=== PATIENT | female | born 1950 | race Hispanic/Latino ===

== ENCOUNTER 2018-04-28 23:36 | Emergency (ER) | payer MEDICARE ==
[2018-04-29] MEDS ORDERED: ONDANSETRON HCL 4 MG/2 ML VIAL ONE (00:14)
[2018-04-29] MEDS ORDERED: MORPHINE SULFATE 2 MG/ML 1ML SYG ONE (00:14)
[2018-04-29 00:17] LABS: APPEARANCE,URINE Clear (CLEAR); BASOPHILS % (AUTO) 0.3 % (0.0-5.0); BILIRUBIN,URINE Negative (NEGATIVE); COLOR,URINE Yellow (YELLOW); EOSINOPHILS % (AUTO) 0.8 % (0.0-8.0); GLUCOSE, URINE (UA) Negative (NEGATIVE); HEMATOCRIT 36.3 % (36-48); KETONES,URINE Negative (NEGATIVE); LEUKOCYTE ESTERASE ,URINE Moderate (NEGATIVE); LYMPHOCYTES % (AUTO) 13.2 % (21.0-51.0); MEAN CORPUSCULAR HEMOGLOBIN 28.1 pg (27.0-33.0); MEAN CORPUSCULAR HGB CONC 32.8 g/dL (32.0-36.0); MEAN CORPUSCULAR VOLUME 85.6 fL (79-99); MONOCYTES % (AUTO) 8.4 % (3.0-13.0); NEUTROPHILS % (AUTO) 77.3 % (40.0-77.0); NITRATE,URINE Negative (NEGATIVE); OCCULT BLOOD,URINE Moderate (NEGATIVE); PLATELET COUNT (AUTO) 295 K/uL (130-400); PROTEIN,URINE Negative (NEGATIVE); RED BLOOD CELL COUNT(AUTO) 4.24 MIL/uL (4.00-5.50); UROBILINOGEN,URINE 0.2 mg/dL (0.2-1.0); WHITE BLOOD COUNT (AUTO) 10.6 K/uL (4.8-10.8)
[2018-04-29 00:25] LABS: BACTERIA,URINE Few /HPF (None Seen); RBC,URINE 0-1 /HPF (0-1)
[2018-04-29 00:33] LABS: ALBUMIN 3.8 g/dL (3.5-5.0); BILIRUBIN,TOTAL 0.5 mg/dL (0.2-1.0); CREATININE 1.1 mg/dL (0.5-1.5); TOTAL PROTEIN, SERUM 8.2 g/dL (6.0-8.3)
[2018-04-29 01:10] LABS: POTASSIUM 4.1 mmol/L (3.5-5.1)
[2018-04-29] MEDS ORDERED: IOPAMIDOL-370 75 ML VIAL IV ONE (01:25)
== END 2018-04-29 04:02 | disposition home or self-care (01) ==
LOC: EDH 23:36
DX: N39.0 Urinary tract infection, site not specified (principal); R10.9 Unspecified abdominal pain; N13.30 Unspecified hydronephrosis; I10 Essential (primary) hypertension; Z90.710 Acquired absence of both cervix and uterus
CPT/HCPCS: 36415; 74177; 80053; 81001; 83690; 85025; 87088; 96374; 96375; 99285; J2405; Q9967

== ENCOUNTER 2018-05-02 03:54 | Inpatient (IN) | payer MEDICARE ==
[~2018-05-02] VITALS: Ht 160 cm; Wt 79.1 kg
[2018-05-02 04:32] LABS: APPEARANCE,URINE Clear (CLEAR); BILIRUBIN,URINE Negative (NEGATIVE); COLOR,URINE Yellow (YELLOW); GLUCOSE, URINE (UA) Negative (NEGATIVE); KETONES,URINE Negative (NEGATIVE); LEUKOCYTE ESTERASE ,URINE Negative (NEGATIVE); NITRATE,URINE Negative (NEGATIVE); OCCULT BLOOD,URINE Negative (NEGATIVE); PH,URINE 6.5 (5.0-8.0); PROTEIN,URINE Negative (NEGATIVE); UROBILINOGEN,URINE 0.2 mg/dL (0.2-1.0)
[2018-05-02] MEDS ORDERED: MEPERIDINE-PF 25 MG/ML SYG ONE ×2 (04:45→06:12)
[2018-05-02] MEDS ORDERED: ONDANSETRON HCL 4 MG/2 ML VIAL ONE ×3 (04:46→12:07)
[2018-05-02 05:02] LABS: BASOPHILS % (AUTO) 0.4 % (0.0-5.0); EOSINOPHILS % (AUTO) 0.2 % (0.0-8.0); HEMATOCRIT 33.4 % (36-48); LYMPHOCYTES % (AUTO) 11.1 % (21.0-51.0); MEAN CORPUSCULAR HEMOGLOBIN 28.7 pg (27.0-33.0); MEAN CORPUSCULAR HGB CONC 33.5 g/dL (32.0-36.0); MEAN CORPUSCULAR VOLUME 85.6 fL (79-99); MONOCYTES % (AUTO) 6.3 % (3.0-13.0); PLATELET COUNT (AUTO) 300 K/uL (130-400); RED CELL DISTRIBUTION WIDTH 17.2 % (11.0-15.5); WHITE BLOOD COUNT (AUTO) 9.1 K/uL (4.8-10.8)
[2018-05-02 05:11] LABS: POTASSIUM 3.8 mmol/L (3.5-5.1)
[2018-05-02 05:17] LABS: ALBUMIN 3.6 g/dL (3.5-5.0); BILIRUBIN,TOTAL 0.4 mg/dL (0.2-1.0); TOTAL PROTEIN, SERUM 8.1 g/dL (6.0-8.3)
[2018-05-02] MEDS ORDERED: ACETAMINOPHEN 325 MG TAB ONE (05:39)
[2018-05-02] MEDS ORDERED: SODIUM CHLORIDE 0.9% 50 ML IV ONE (06:12)
[2018-05-02] MEDS ORDERED: MORPHINE SULFATE 2 MG/ML 1ML SYG ONE (08:51)
[2018-05-02] MEDS ORDERED: MORPHINE SULFATE 4 MG/1ML SYG ONE ×3 (12:10→22:51)
[2018-05-02 15:19] VITALS: BP 166/97
[2018-05-02] MEDS ORDERED: MIRALAX PO (16:32)
[2018-05-02] MEDS ORDERED: CEPH500C2 PO (16:32)
[2018-05-02] MEDS ORDERED: ACET1TAB25 PO (16:32)
[2018-05-02] MEDS ORDERED: OLME20TA22 PO (16:32)
[2018-05-02] MEDS ORDERED: SIMV20TA6 PO (16:32)
[2018-05-02] MEDS ORDERED: AEC81 PO (16:32)
[2018-05-02] MEDS: MORPHINE SULFATE 2 MG/ML 1ML SYG IVP PRN (16:39)
[2018-05-02] MEDS: ONDANSETRON HCL 4 MG/2 ML VIAL IVP PRN (16:40)
[2018-05-02 19:22] VITALS: BP 177/81
[2018-05-02] MEDS ORDERED: POLYETHYLENE GLYCOL 3350 17 GM POWD.PACK PO PRN (20:30)
[2018-05-02] MEDS ORDERED: IOPAMIDOL-370 75 ML VIAL IV ONE (20:30)
[2018-05-02] MEDS: FAMOTIDINE 20MG TAB 20 MG TAB PO SCH (21:19)
[2018-05-02] MEDS: SODIUM CHLORIDE 0.9% 1000ML 1,000 ML IV SCH (21:19)
[2018-05-02] MEDS: ATORVASTATIN CALCIUM 10 MG TABLET PO SCH (21:19)
[2018-05-03] VITALS (7 sets, daily range): BP systolic 126–153; BP diastolic 72–90
[2018-05-03 04:51] LABS: HEMATOCRIT 33.7 % (36-48); MEAN CORPUSCULAR HEMOGLOBIN 28.8 pg (27.0-33.0); MEAN CORPUSCULAR HGB CONC 33.5 g/dL (32.0-36.0); MEAN CORPUSCULAR VOLUME 85.8 fL (79-99); PLATELET COUNT (AUTO) 287 K/uL (130-400); RED BLOOD CELL COUNT(AUTO) 3.93 MIL/uL (4.00-5.50); RED CELL DISTRIBUTION WIDTH 17.5 % (11.0-15.5); WHITE BLOOD COUNT (AUTO) 9.4 K/uL (4.8-10.8)
[2018-05-03] MEDS ORDERED: MORPHINE SULFATE 4 MG/1ML SYG ONE ×4 (04:52→21:39)
[2018-05-03 05:03] LABS: CREATININE 1.2 mg/dL (0.5-1.5)
[2018-05-03] MEDS: FAMOTIDINE 20MG TAB 20 MG TAB PO SCH ×2 (09:14→22:02)
[2018-05-03] MEDS: ASPIRIN 81 MG EC TAB PO SCH (09:14)
[2018-05-03] MEDS: LOSARTAN 100 MG TABLET PO SCH (09:14)
[2018-05-03] MEDS: ENOXAPARIN SODIUM 40 MG/0.4 ML SYRINGE SQ SCH (09:14)
[2018-05-03] MEDS: SODIUM CHLORIDE 0.9% 1000ML 1,000 ML IV SCH ×2 (09:17→22:05)
[2018-05-03] MEDS: ONDANSETRON HCL 4 MG/2 ML VIAL IVP PRN ×3 (11:33→21:53)
[2018-05-03] MEDS: LACTULOSE 20 GM/30 ML UDCUP PO SCH (11:33)
[2018-05-03] MEDS: MORPHINE SULFATE 2 MG/ML 1ML SYG IVP PRN ×2 (11:34→17:02)
[2018-05-03] MEDS ORDERED: MAGNESIUM CITRATE 296 ML SOLUTION PO ONE (17:00)
[2018-05-03] MEDS: ATORVASTATIN CALCIUM 10 MG TABLET PO SCH (22:02)
[2018-05-04] VITALS (22 sets, daily range): BP systolic 77–169; BP diastolic 44–90
[2018-05-04] MEDS ORDERED: MORPHINE SULFATE 4 MG/1ML SYG ONE ×2 (04:50→10:23)
[2018-05-04 05:44] LABS: HEMATOCRIT 33.3 % (36-48); MEAN CORPUSCULAR HEMOGLOBIN 28.6 pg (27.0-33.0); MEAN CORPUSCULAR HGB CONC 33.4 g/dL (32.0-36.0); MEAN CORPUSCULAR VOLUME 85.5 fL (79-99); PLATELET COUNT (AUTO) 308 K/uL (130-400); RED CELL DISTRIBUTION WIDTH 17.1 % (11.0-15.5); WHITE BLOOD COUNT (AUTO) 10.6 K/uL (4.8-10.8)
[2018-05-04 05:51] LABS: CREATININE 1.1 mg/dL (0.5-1.5); POTASSIUM 4.2 mmol/L (3.5-5.1)
[2018-05-04 06:55] LABS: PARTIAL THROMBOPLASTIN TIME 29.3 SEC (26.3-35.5); PROTHROMBIN TIME 10.5 SEC (9.6-11.6)
[2018-05-04] MEDS: LOSARTAN 100 MG TABLET PO SCH (07:32)
[2018-05-04] MEDS: ASPIRIN 81 MG EC TAB PO SCH (07:32)
[2018-05-04] MEDS: FAMOTIDINE 20MG TAB 20 MG TAB PO SCH ×2 (07:33→22:12)
[2018-05-04] MEDS: ENOXAPARIN SODIUM 40 MG/0.4 ML SYRINGE SQ SCH (07:33)
[2018-05-04] MEDS: LACTULOSE 20 GM/30 ML UDCUP PO SCH (07:33)
[2018-05-04] MEDS: SODIUM CHLORIDE 0.9% 1000ML 1,000 ML IV SCH (12:25)
[2018-05-04] MEDS ORDERED: LACTATED RINGERS 1000ML 1,000 ML IV ONE (13:15)
[2018-05-04] MEDS ORDERED: CEFAZOLIN SODIUM 1 GM VIAL ONE (13:15)
[2018-05-04] MEDS ORDERED: GLYCOPYRROLATE 0.2 MG/ML 5 ML VIAL ONE (13:37)
[2018-05-04] MEDS ORDERED: DEXAMETHASONE SOD PHOSPHATE 10MG/ML 1ML VIAL ONE (13:37)
[2018-05-04] MEDS ORDERED: LIDOCAINE PF 2% 5ML ABBOJECT ONE (13:37)
[2018-05-04] MEDS ORDERED: ONDANSETRON HCL 4 MG/2 ML VIAL ONE (13:37)
[2018-05-04] MEDS ORDERED: PROPOFOL 10 MG/ML 20ML VIAL IV ONE ×2 (13:39→14:18)
[2018-05-04] MEDS ORDERED: MIDAZOLAM HCL 1 MG/ML 2ML VIAL ONE (13:39)
[2018-05-04] MEDS ORDERED: ISOVUE-370 50ML VIAL IV ONE (13:45)
[2018-05-04] MEDS ORDERED: LIDOCAINE HCL MPF 1% 5ML VIAL ONE (15:36)
[2018-05-04] MEDS ORDERED: CEFAZOLIN SODIUM 1 GM VIAL IV PRN (16:00)
[2018-05-04] MEDS: ATORVASTATIN CALCIUM 10 MG TABLET PO SCH (22:12)
[2018-05-05 03:00] VITALS: BP 129/52
[2018-05-05 05:18] LABS: HEMATOCRIT 31.9 % (36-48); MEAN CORPUSCULAR HEMOGLOBIN 28.5 pg (27.0-33.0); MEAN CORPUSCULAR VOLUME 86.2 fL (79-99); PLATELET COUNT (AUTO) 298 K/uL (130-400); RED CELL DISTRIBUTION WIDTH 16.9 % (11.0-15.5); WHITE BLOOD COUNT (AUTO) 7.8 K/uL (4.8-10.8)
[2018-05-05 05:40] LABS: ALBUMIN 2.7 g/dL (3.5-5.0); BILIRUBIN,TOTAL 0.3 mg/dL (0.2-1.0); TOTAL PROTEIN, SERUM 6.9 g/dL (6.0-8.3)
[2018-05-05] MEDS: SODIUM CHLORIDE 0.9% 1000ML 1,000 ML IV SCH ×2 (06:27→20:40)
[2018-05-05 08:00] VITALS: BP 136/54
[2018-05-05] MEDS: ASPIRIN 81 MG EC TAB PO SCH (09:03)
[2018-05-05] MEDS: FAMOTIDINE 20MG TAB 20 MG TAB PO SCH ×2 (09:03→20:37)
[2018-05-05] MEDS: ENOXAPARIN SODIUM 40 MG/0.4 ML SYRINGE SQ SCH (09:04)
[2018-05-05] MEDS: LOSARTAN 100 MG TABLET PO SCH (09:04)
[2018-05-05] MEDS: LACTULOSE 20 GM/30 ML UDCUP PO SCH (09:06)
[2018-05-05 12:00] VITALS: BP 118/86
[2018-05-05 16:00] VITALS: BP 117/69
[2018-05-05 19:00] VITALS: BP 127/64
[2018-05-05] MEDS: ATORVASTATIN CALCIUM 10 MG TABLET PO SCH (20:37)
[2018-05-05 23:00] VITALS: BP 135/57
[2018-05-06 03:00] VITALS: BP 150/76
[2018-05-06] MEDS: SODIUM CHLORIDE 0.9% 1000ML 1,000 ML IV SCH (04:00)
[2018-05-06 05:03] LABS: BASOPHILS % (AUTO) 0.3 % (0.0-5.0); EOSINOPHILS % (AUTO) 3.5 % (0.0-8.0); LYMPHOCYTES % (AUTO) 28.7 % (21.0-51.0); MEAN CORPUSCULAR HEMOGLOBIN 28.6 pg (27.0-33.0); MEAN CORPUSCULAR HGB CONC 33.1 g/dL (32.0-36.0); MEAN CORPUSCULAR VOLUME 86.2 fL (79-99); MONOCYTES % (AUTO) 9.9 % (3.0-13.0); NEUTROPHILS % (AUTO) 57.6 % (40.0-77.0); PLATELET COUNT (AUTO) 298 K/uL (130-400); RED BLOOD CELL COUNT(AUTO) 3.59 MIL/uL (4.00-5.50); RED CELL DISTRIBUTION WIDTH 16.8 % (11.0-15.5); WHITE BLOOD COUNT (AUTO) 7.2 K/uL (4.8-10.8)
[2018-05-06 05:21] LABS: POTASSIUM 3.9 mmol/L (3.5-5.1)
[2018-05-06 08:00] VITALS: BP 135/79
[2018-05-06] MEDS: ASPIRIN 81 MG EC TAB PO SCH (08:01)
[2018-05-06] MEDS: FAMOTIDINE 20MG TAB 20 MG TAB PO SCH ×2 (08:02→21:32)
[2018-05-06] MEDS: LOSARTAN 100 MG TABLET PO SCH (08:02)
[2018-05-06] MEDS: ENOXAPARIN SODIUM 40 MG/0.4 ML SYRINGE SQ SCH (08:03)
[2018-05-06] MEDS: LACTULOSE 20 GM/30 ML UDCUP PO SCH (11:15)
[2018-05-06 12:00] VITALS: BP 122/75
[2018-05-06 16:00] VITALS: BP 152/78
[2018-05-06 19:00] VITALS: BP 145/78
[2018-05-06] MEDS: ATORVASTATIN CALCIUM 10 MG TABLET PO SCH (21:32)
[2018-05-06 23:00] VITALS: BP 142/84
[2018-05-07 03:00] VITALS: BP 132/70
[2018-05-07 08:00] VITALS: BP 147/78
[2018-05-07] MEDS: ENOXAPARIN SODIUM 40 MG/0.4 ML SYRINGE SQ SCH (09:00)
[2018-05-07] MEDS: FAMOTIDINE 20MG TAB 20 MG TAB PO SCH ×2 (09:44→21:35)
[2018-05-07] MEDS: LOSARTAN 100 MG TABLET PO SCH (09:44)
[2018-05-07] MEDS: ASPIRIN 81 MG EC TAB PO SCH (09:44)
[2018-05-07 10:29] LABS: BASOPHILS % (AUTO) 0.2 % (0.0-5.0); EOSINOPHILS % (AUTO) 3.2 % (0.0-8.0); HEMATOCRIT 34.1 % (36-48); LYMPHOCYTES % (AUTO) 27.2 % (21.0-51.0); MEAN CORPUSCULAR HEMOGLOBIN 28.1 pg (27.0-33.0); MEAN CORPUSCULAR HGB CONC 32.6 g/dL (32.0-36.0); MEAN CORPUSCULAR VOLUME 86.4 fL (79-99); NEUTROPHILS % (AUTO) 59.4 % (40.0-77.0); PLATELET COUNT (AUTO) 323 K/uL (130-400); RED BLOOD CELL COUNT(AUTO) 3.95 MIL/uL (4.00-5.50); RED CELL DISTRIBUTION WIDTH 16.9 % (11.0-15.5); WHITE BLOOD COUNT (AUTO) 7.5 K/uL (4.8-10.8)
[2018-05-07 10:51] LABS: POTASSIUM 4.2 mmol/L (3.5-5.1)
[2018-05-07 11:00] VITALS: BP 142/88
[2018-05-07] MEDS: LACTULOSE 20 GM/30 ML UDCUP PO SCH (11:15)
[2018-05-07] MEDS ORDERED: FAMO20TA8 PO (14:38)
[2018-05-07 16:00] VITALS: BP 146/75
[2018-05-07 20:00] VITALS: BP 148/70
[2018-05-07] MEDS: ATORVASTATIN CALCIUM 10 MG TABLET PO SCH (21:35)
[2018-05-08] VITALS: BP 146/64
[2018-05-08 04:00] VITALS: BP 100/70
== END 2018-05-08 08:51 | disposition home or self-care (01) | DRG 694 ==
LOC: EDH 03:54 → EDHIP 07:26 → 3BH 15:17
PROVIDERS: ADMIT Family Medicine; ATTEND Family Medicine
PROC: BT1F1ZZ Fluoroscopy of Left Kidney, Ureter and Bladder using Low Osmolar Contrast (ICD-10-PCS; 2018-05-04)
PROC: 0T778DZ Dilation of Left Ureter with Intraluminal Device, Via Natural or Artificial Opening Endoscopic (ICD-10-PCS; principal; 2018-05-04 13:35)
DX: N13.39 Other hydronephrosis (principal); R19.00 Intra-abdominal and pelvic swelling, mass and lump, unspecified site; R59.0 Localized enlarged lymph nodes; K52.9 Noninfective gastroenteritis and colitis, unspecified; I10 Essential (primary) hypertension; E78.5 Hyperlipidemia, unspecified; L72.9 Follicular cyst of the skin and subcutaneous tissue, unspecified; N28.1 Cyst of kidney, acquired; N99.3 Prolapse of vaginal vault after hysterectomy; N39.0 Urinary tract infection, site not specified; Z85.42 Personal history of malignant neoplasm of other parts of uterus; Z92.21 Personal history of antineoplastic chemotherapy; Z90.710 Acquired absence of both cervix and uterus; Z83.3 Family history of diabetes mellitus; Z82.49 Family history of ischemic heart disease and other diseases of the circulatory system
CPT/HCPCS: 36415; 49180; 74018; 74170; 74176; 74177; 74420; 77012; 80048; 80053; 81001; 81003; 83690; 85025; 85027; 85610; 85730; 87088; 88305; A4218; A4344; C1758; C2617; J0690; J1100; J1650; J2001; J2175; J2250; J2270; J2405; J2704; J3490; J7030; J7120; Q9967

== ENCOUNTER → 2018-10-15 | Outpatient (CLI) | payer MEDICARE ==
[~2018-10-15] VITALS: Ht 160 cm; Wt 79.7 kg
[~2018-10-15] MED LIST: AEC81 PO; AMOXICILLIN PO; CEFAZOLIN SODIUM 1 GM VIAL IVP SCH; DEXA4TAB PO; LACTATED RINGERS 1000ML 1,000 ML IV SCH; OLAN2.5T29 PO; OLME20TA22 PO; PANT40TA25 PO; SIMV20TA6 PO; ZOSYN 3.375GM+NS 50ML 50 ML IV SCH
[2018-10-15 16:55] VITALS: BP 145/68
[2018-10-15 17:07] LABS: HEMATOCRIT 34.4 % (36-48); MEAN CORPUSCULAR HGB CONC 31.9 g/dL (32.0-36.0); NUCLEATED RED BLOOD CELLS 0.1 % (0.0-0.19); PLATELET COUNT (AUTO) 153 K/uL (130-400); RED BLOOD CELL COUNT(AUTO) 3.79 MIL/uL (4.00-5.50); RED CELL DISTRIBUTION WIDTH 17.6 % (11.0-15.5); WHITE BLOOD COUNT (AUTO) 7.4 K/uL (4.8-10.8)
[2018-10-15 17:10] LABS: CREATININE 0.9 mg/dL (0.5-1.5); POTASSIUM 4.1 mmol/L (3.5-5.1)
[2018-10-15 17:11] LABS: APPEARANCE,URINE Clear (CLEAR); BILIRUBIN,URINE Negative (NEGATIVE); COLOR,URINE Yellow (YELLOW); GLUCOSE, URINE (UA) Negative (NEGATIVE); INR 0.97 (0.85-1.15); KETONES,URINE Negative (NEGATIVE); LEUKOCYTE ESTERASE ,URINE Moderate (NEGATIVE); NITRATE,URINE Negative (NEGATIVE); OCCULT BLOOD,URINE Large (NEGATIVE); PARTIAL THROMBOPLASTIN TIME 25.4 SEC (26.3-35.5); PH,URINE 5.5 (5.0-8.0); PROTEIN,URINE Negative (NEGATIVE); PROTHROMBIN TIME 10.2 SEC (9.6-11.6)
[2018-10-15 17:25] LABS: BACTERIA,URINE Rare /HPF (None Seen)
[2018-10-15 17:26] LABS: YEAST,URINE BUDDING Few /HPF (None Seen)
== END ==
LOC: DAH 10:00 → EDSTATUS 10-23 07:00
PROVIDERS: ATTEND Urology
DX: N13.30 Unspecified hydronephrosis (principal); Z53.9 Procedure and treatment not carried out, unspecified reason
CPT/HCPCS: 36415; 71046; 80048; 81001; 85027; 85610; 85730; 87077; 87088; 87186; 93005

== ENCOUNTER 2018-11-06 05:53 | Day surgery (SDC) | payer MEDICARE ==
[2018-11-05 11:35] VITALS: BP 138/62
[2018-11-05 11:50] LABS: HEMATOCRIT 34.1 % (36-48); MEAN CORPUSCULAR HEMOGLOBIN 29.3 pg (27.0-33.0); MEAN CORPUSCULAR HGB CONC 32.6 g/dL (32.0-36.0); NUCLEATED RED BLOOD CELLS 0.1 % (0.0-0.19); PLATELET COUNT (AUTO) 255 K/uL (130-400); RED BLOOD CELL COUNT(AUTO) 3.79 MIL/uL (4.00-5.50); RED CELL DISTRIBUTION WIDTH 16.9 % (11.0-15.5); WHITE BLOOD COUNT (AUTO) 3.8 K/uL (4.8-10.8)
[2018-11-05 11:50] LABS: APPEARANCE,URINE Clear (CLEAR); BILIRUBIN,URINE Negative (NEGATIVE); COLOR,URINE Yellow (YELLOW); GLUCOSE, URINE (UA) Negative (NEGATIVE); KETONES,URINE Negative (NEGATIVE); LEUKOCYTE ESTERASE ,URINE Small (NEGATIVE); NITRATE,URINE Negative (NEGATIVE); OCCULT BLOOD,URINE Large (NEGATIVE); PH,URINE 5.5 (5.0-8.0); PROTEIN,URINE Trace (NEGATIVE)
[2018-11-05 11:56] LABS: BACTERIA,URINE Rare /HPF (None Seen); RBC,URINE 26-50 /HPF (0-1); SQUAMOUS EPITHELIAL CELL,UR Rare /HPF (0-2)
[2018-11-05 12:00] LABS: CREATININE 0.8 mg/dL (0.5-1.5); POTASSIUM 4.3 mmol/L (3.5-5.1)
[2018-11-05 12:02] LABS: INR 0.97 (0.85-1.15); PARTIAL THROMBOPLASTIN TIME 25.9 SEC (26.3-35.5); PROTHROMBIN TIME 10.2 SEC (9.6-11.6)
[~2018-11-06] VITALS: Ht 158.8 cm; Wt 79.8 kg
[2018-11-06] VITALS (13 sets, daily range): BP systolic 108–162; BP diastolic 63–90
[2018-11-06] MEDS: CEFAZOLIN SODIUM 1 GM VIAL IVP SCH ×2 (05:00→07:00)
[~2018-11-06 05:53] MED LIST changes: -AMOXICILLIN PO; -CEFAZOLIN SODIUM 1 GM VIAL IVP SCH; -DEXA4TAB PO; +ERGO500014 PO; -LACTATED RINGERS 1000ML 1,000 ML IV SCH; -OLAN2.5T29 PO; -PANT40TA25 PO; +RIVA15TA PO; +VITAMIN B12 PO; -ZOSYN 3.375GM+NS 50ML 50 ML IV SCH
[2018-11-06] MEDS ORDERED: IOHEXOL-350 50ML VIAL IV ONE (06:24)
[2018-11-06] MEDS: LACTATED RINGERS 1000ML 1,000 ML IV SCH ×2 (06:41→06:55)
[2018-11-06] MEDS ORDERED: LIDOCAINE PF 2% 5ML ABBOJECT ONE (06:57)
[2018-11-06] MEDS ORDERED: DEXAMETHASONE SOD PHOSPHATE 10MG/ML 1ML VIAL ONE (06:57)
[2018-11-06] MEDS ORDERED: FENTANYL CITRATE PF 50 MCG/1 ML 2ML VIAL ONE (06:58)
[2018-11-06] MEDS ORDERED: NEOSTIGMINE 5MG/5ML SYR IV ONE (06:58)
[2018-11-06] MEDS ORDERED: ONDANSETRON HCL 4 MG/2 ML VIAL ONE (06:58)
[2018-11-06] MEDS ORDERED: MIDAZOLAM HCL 1 MG/ML 2ML VIAL ONE (06:58)
[2018-11-06] MEDS ORDERED: PROPOFOL 10 MG/ML 20ML VIAL IV ONE (06:58)
[2018-11-06] MEDS ORDERED: ROCURONIUM 10MG/1ML SYR 10 MG/ML ML ONE (06:58)
[2018-11-06] MEDS ORDERED: GLYCOPYRROLATE 1 MG/5 ML SYRINGE ONE (06:58)
[2018-11-06] MEDS ORDERED: SODIUM CHLORIDE 0.9% 10 ML VIAL ONE (07:15)
[2018-11-06] MEDS ORDERED: PHENYLEPHRINE HCL 10 MG/ML 1ML VIAL IV ONE (07:15)
== END 2018-11-06 09:10 | disposition home or self-care (01) ==
LOC: DAH 05:53 → EDSTATUS 07:00 → DAH 09:10
PROVIDERS: ATTEND Urology
DX: N13.30 Unspecified hydronephrosis (principal); C56.9 Malignant neoplasm of unspecified ovary; C79.82 Secondary malignant neoplasm of genital organs; I10 Essential (primary) hypertension
CPT/HCPCS: 36415; 52332; 74420; 80048; 81001; 85027; 85610; 85730; 87088; A4358; A4930; C1758; C1769; C2617; J0690; J1100; J2001; J2250; J2370; J2405; J2704; J2710; J3010; J3490; J7120 ×2; Q9967

== ENCOUNTER 2019-01-28 01:14 | Inpatient (IN) | payer MEDICARE ==
[~2019-01-28] VITALS: Ht 160 cm; Wt 69.2 kg
[~2019-01-28 01:14] MED LIST changes: +ONDA4TAB9 PO; -RIVA15TA PO; +TRAM50TA4 PO
[2019-01-28 02:13] LABS: APPEARANCE,URINE Clear (CLEAR); BILIRUBIN,URINE Negative (NEGATIVE); COLOR,URINE Yellow (YELLOW); GLUCOSE, URINE (UA) Negative (NEGATIVE); KETONES,URINE Negative (NEGATIVE); LEUKOCYTE ESTERASE ,URINE Small (NEGATIVE); NITRATE,URINE Negative (NEGATIVE); OCCULT BLOOD,URINE Moderate (NEGATIVE); PH,URINE 5.5 (5.0-8.0); PROTEIN,URINE Negative (NEGATIVE)
[2019-01-28 02:31] LABS: BACTERIA,URINE Few /HPF (None Seen)
[2019-01-28] MEDS ORDERED: MORPHINE SULFATE 2 MG/ML 1ML SYG ONE (02:48)
[2019-01-28] MEDS ORDERED: ONDANSETRON HCL 4 MG/2 ML VIAL ONE (02:48)
[2019-01-28 02:54] LABS: BASOPHILS % (AUTO) 0.4 % (0.0-5.0); EOSINOPHILS % (AUTO) 0.6 % (0.0-8.0); HEMATOCRIT 31.9 % (36-48); LYMPHOCYTES % (AUTO) 9.2 % (21.0-51.0); MEAN CORPUSCULAR HEMOGLOBIN 26.4 pg (27.0-33.0); MEAN CORPUSCULAR VOLUME 82.5 fL (79-99); MONOCYTES % (AUTO) 8.4 % (3.0-13.0); NEUTROPHILS % (AUTO) 81.4 % (40.0-77.0); NUCLEATED RED BLOOD CELLS 0.2 % (0.0-0.19); PLATELET COUNT (AUTO) 301 K/uL (130-400); RED BLOOD CELL COUNT(AUTO) 3.87 MIL/uL (4.00-5.50); RED CELL DISTRIBUTION WIDTH 15.5 % (11.0-15.5); WHITE BLOOD COUNT (AUTO) 12.9 K/uL (4.8-10.8)
[2019-01-28 03:00] LABS: CREATININE 1.4 mg/dL (0.5-1.5); POTASSIUM 4.2 mmol/L (3.5-5.1)
[2019-01-28] MEDS ORDERED: FENTANYL CITRATE PF 50 MCG/1 ML 2ML VIAL ONE (04:50)
[2019-01-28] MEDS ORDERED: HYDROCODONE/ACETAMINOPHEN 5/325 MG TAB PO PRN (07:45)
[2019-01-28] MEDS ORDERED: HYDRALAZINE HCL 20 MG/ML VIAL IM PRN (07:45)
[2019-01-28] MEDS ORDERED: MORPHINE SULFATE 2 MG/ML 1ML SYG IV PRN (07:45)
[2019-01-28] MEDS: LEVOFLOXACIN 500 MG/D5W 100 ML 100 ML IV SCH (07:45)
[2019-01-28] MEDS ORDERED: ONDANSETRON HCL 4 MG/2 ML VIAL IV PRN (07:45)
[2019-01-28] MEDS: MEGESTROL 400 MG/10 ML UDCUP PO SCH (09:00)
[2019-01-28] MEDS: FAMOTIDINE 20MG TAB 20 MG TAB PO SCH ×2 (09:00→23:01)
[2019-01-28] MEDS: ENOXAPARIN SODIUM 40 MG/0.4 ML SYRINGE SQ SCH (09:00)
[2019-01-28] MEDS ORDERED: LEVOFLOXACIN 500 MG/D5W 100 ML 100 ML ONE (09:50)
[2019-01-28] MEDS ORDERED: FAMOTIDINE 20MG TAB 20 MG TAB ONE (09:50)
[2019-01-28] MEDS ORDERED: ENOXAPARIN SODIUM 40 MG/0.4 ML SYRINGE SQ ONE (11:06)
[2019-01-28] MEDS ORDERED: HYDROCODONE/ACETAMINOPHEN 5/325 MG TAB ONE (19:51)
[2019-01-28 22:19] VITALS: BP 110/50
[2019-01-28] MEDS: SODIUM CHLORIDE 0.9% 1000ML 1,000 ML IV SCH (23:01)
[2019-01-28] MEDS ORDERED: CYAN250010 PO (23:22)
[2019-01-29 00:14] VITALS: BP 93/69
[2019-01-29 04:00] VITALS: BP_SYST 104; BP_SYST 108; BP_DIAS 45; BP_DIAS 58
[2019-01-29 05:25] LABS: HEMATOCRIT 28.1 % (36-48); MEAN CORPUSCULAR HGB CONC 32.6 g/dL (32.0-36.0); MEAN CORPUSCULAR VOLUME 82.8 fL (79-99); NUCLEATED RED BLOOD CELLS 0.1 % (0.0-0.19); PLATELET COUNT (AUTO) 255 K/uL (130-400); RED CELL DISTRIBUTION WIDTH 15.8 % (11.0-15.5); WHITE BLOOD COUNT (AUTO) 6.6 K/uL (4.8-10.8)
[2019-01-29 05:37] LABS: ALBUMIN 2.2 g/dL (3.5-5.0); BILIRUBIN,TOTAL 0.3 mg/dL (0.2-1.0); CREATININE 1.4 mg/dL (0.5-1.5); POTASSIUM 4.5 mmol/L (3.5-5.1); TOTAL PROTEIN, SERUM 6.7 g/dL (6.0-8.3)
[2019-01-29] MEDS: LEVOFLOXACIN 500 MG/D5W 100 ML 100 ML IV SCH (06:45)
[2019-01-29 08:00] VITALS: BP 111/68
[2019-01-29] MEDS: ENOXAPARIN SODIUM 40 MG/0.4 ML SYRINGE SQ SCH (10:01)
[2019-01-29] MEDS: FAMOTIDINE 20MG TAB 20 MG TAB PO SCH ×2 (10:01→23:37)
[2019-01-29] MEDS: MEGESTROL 400 MG/10 ML UDCUP PO SCH (10:01)
[2019-01-29] MEDS: SODIUM CHLORIDE 0.9% 1000ML 1,000 ML IV SCH (10:02)
[2019-01-29] MEDS ORDERED: TRAMADOL /APAP 37.5MG/325MG TAB PO PRN (10:45)
[2019-01-29 12:00] VITALS: BP 118/79
[2019-01-29] MEDS: MEPERIDINE-PF 25 MG/ML SYG IV PRN ×2 (12:20→23:38)
--- NOTE | 2019-01-29 13:19 | NUR ---
LT. FLANK PAIN RELIEVED VERY LITTLE WITH IV DEMEROL.SUPPLEMENTED WITH 1 HYDROCODONE PO NOW.
--- NOTE | 2019-01-29 14:34 | NUR ---
DC Plan Discussed dc plan w/ patient and friend at bedside. brother lives w/ patient but is rarely there. Has limited family support. [facility] has provider for 20hrs/week. Nurse from [facility] visits patient. [facility] has shower chair. Friend states patient gets tired easy and may need a walker. Patient declined and [facility] does not need one. DCP to home vs possible SNF. CD Addendum: 01/29/19 at 1438 by JEFFERSON MARS CM Amended: Links added.
[2019-01-29 16:00] VITALS: BP 113/58
--- NOTE | 2019-01-29 16:00 | NUR ---
STATES PAIN SCALE AT A 3 BUT AT THIS TIME DOES NOT WANT ANY PAIN MED. WILL WAIT A LITTLE LONGER. Addendum: 01/29/19 at 1747 by MARTHA ORTIZ RN RN Amended: Links added.
--- NOTE | 2019-01-29 18:40 | NUR ---
DR. LIANG IN TO SEE PT. DISCUSSED FINDINGS OF CT-ABD/PELVIS. STILL PENDING FOR DR. FLANAGAN TO SEE PT. NOW.
[2019-01-29 20:23] VITALS: BP 128/76
[2019-01-30 01:15] VITALS: BP 102/58
[2019-01-30 05:08] LABS: CREATININE 1.4 mg/dL (0.5-1.5); POTASSIUM 4.6 mmol/L (3.5-5.1)
[2019-01-30 05:12] LABS: HEMATOCRIT 28.5 % (36-48); MEAN CORPUSCULAR HEMOGLOBIN 26.6 pg (27.0-33.0); MEAN CORPUSCULAR VOLUME 83.4 fL (79-99); PLATELET COUNT (AUTO) 282 K/uL (130-400); RED BLOOD CELL COUNT(AUTO) 3.42 MIL/uL (4.00-5.50); RED CELL DISTRIBUTION WIDTH 15.9 % (11.0-15.5); WHITE BLOOD COUNT (AUTO) 7.4 K/uL (4.8-10.8)
[2019-01-30 05:49] VITALS: BP 109/60
[2019-01-30 08:00] VITALS: BP 106/64
[2019-01-30] MEDS: LEVOFLOXACIN 500 MG/D5W 100 ML 100 ML IV SCH (08:04)
[2019-01-30] MEDS: MEGESTROL 400 MG/10 ML UDCUP PO SCH (08:05)
[2019-01-30] MEDS: FAMOTIDINE 20MG TAB 20 MG TAB PO SCH ×2 (08:05→22:27)
[2019-01-30] MEDS: ENOXAPARIN SODIUM 40 MG/0.4 ML SYRINGE SQ SCH (08:05)
[2019-01-30] MEDS ORDERED: IOHEXOL-350 75 ML VIAL IV ONE (08:58)
[2019-01-30 12:00] VITALS: BP 101/55
[2019-01-30 16:00] VITALS: BP 106/65
--- NOTE | 2019-01-30 17:20 | NUR ---
SPOKE WITH DR. ELAM RADIOLOGIST REGARDING IVP AND DR. FLANAGAN'S ORDER REQUEST. DR. ELAM SAID, "I SEE DILATATION OF THE COLLECTION SYSTEM IN THE LEFT KIDNEY." "I CAN ONLY SEE WHAT I DICTATED." "TELL HIM I CANT SEE THE URETER ESTRELLITA IT DIDN'T LIGHT UP."
[2019-01-30 20:42] VITALS: BP 125/69
[2019-01-31] VITALS: BP 91/58
[2019-01-31] MEDS: MEPERIDINE-PF 25 MG/ML SYG IV PRN (00:05)
[2019-01-31 03:20] VITALS: BP 91/66
[2019-01-31 05:03] LABS: BASOPHILS % (AUTO) 0.7 % (0.0-5.0); EOSINOPHILS % (AUTO) 2.4 % (0.0-8.0); HEMATOCRIT 28.6 % (36-48); LYMPHOCYTES % (AUTO) 19.1 % (21.0-51.0); MEAN CORPUSCULAR HEMOGLOBIN 27.1 pg (27.0-33.0); MEAN CORPUSCULAR HGB CONC 32.8 g/dL (32.0-36.0); MEAN CORPUSCULAR VOLUME 82.7 fL (79-99); MONOCYTES % (AUTO) 12.6 % (3.0-13.0); NEUTROPHILS % (AUTO) 65.2 % (40.0-77.0); NUCLEATED RED BLOOD CELLS 0.1 % (0.0-0.19); PLATELET COUNT (AUTO) 303 K/uL (130-400); RED BLOOD CELL COUNT(AUTO) 3.46 MIL/uL (4.00-5.50); WHITE BLOOD COUNT (AUTO) 8.8 K/uL (4.8-10.8)
[2019-01-31 05:09] LABS: CREATININE 1.6 mg/dL (0.5-1.5); POTASSIUM 4.2 mmol/L (3.5-5.1)
[2019-01-31 08:00] VITALS: BP 112/65
[2019-01-31] MEDS: ENOXAPARIN SODIUM 40 MG/0.4 ML SYRINGE SQ SCH (10:36)
[2019-01-31] MEDS: LEVOFLOXACIN 500 MG/D5W 100 ML 100 ML IV SCH (10:36)
[2019-01-31] MEDS: FAMOTIDINE 20MG TAB 20 MG TAB PO SCH ×2 (10:36→21:25)
[2019-01-31] MEDS: MEGESTROL 400 MG/10 ML UDCUP PO SCH (10:36)
[2019-01-31 12:00] VITALS: BP 107/57
[2019-01-31 16:00] VITALS: BP 106/70
[2019-01-31 22:05] VITALS: BP 117/72
[2019-02-01] VITALS (19 sets, daily range): BP systolic 88–124; BP diastolic 57–82
[2019-02-01] MEDS: MEPERIDINE-PF 25 MG/ML SYG IV PRN (00:57)
[2019-02-01] MEDS: LEVOFLOXACIN 500 MG/D5W 100 ML 100 ML IV SCH ×3 (06:35→08:00)
[2019-02-01] MEDS ORDERED: LACTATED RINGERS 1000ML 1,000 ML IV ONE (06:39)
[2019-02-01] MEDS ORDERED: PROPOFOL 10 MG/ML 20ML VIAL IV ONE (06:44)
[2019-02-01] MEDS ORDERED: ONDANSETRON HCL 4 MG/2 ML VIAL ONE (06:44)
[2019-02-01] MEDS ORDERED: DEXAMETHASONE SOD PHOSPHATE 10MG/ML 1ML VIAL ONE (06:44)
[2019-02-01] MEDS ORDERED: FENTANYL CITRATE PF 50 MCG/1 ML 2ML VIAL ONE (06:44)
[2019-02-01] MEDS ORDERED: MIDAZOLAM HCL 1 MG/ML 2ML VIAL ONE (06:44)
[2019-02-01] MEDS ORDERED: LIDOCAINE PF 2% 5ML ABBOJECT ONE (06:44)
[2019-02-01] MEDS ORDERED: IOHEXOL-350 50ML VIAL IV ONE (06:56)
[2019-02-01] MEDS: ENOXAPARIN SODIUM 40 MG/0.4 ML SYRINGE SQ SCH (09:00)
[2019-02-01] MEDS: MEGESTROL 400 MG/10 ML UDCUP PO SCH (10:11)
[2019-02-01] MEDS: FAMOTIDINE 20MG TAB 20 MG TAB PO SCH ×2 (10:11→21:17)
[2019-02-02] VITALS: BP 101/63
[2019-02-02 04:00] VITALS: BP 112/62
[2019-02-02 04:58] LABS: HEMATOCRIT 29.4 % (36-48); MEAN CORPUSCULAR HEMOGLOBIN 26.5 pg (27.0-33.0); MEAN CORPUSCULAR HGB CONC 32.1 g/dL (32.0-36.0); MEAN CORPUSCULAR VOLUME 82.7 fL (79-99); NUCLEATED RED BLOOD CELLS 0.1 % (0.0-0.19); PLATELET COUNT (AUTO) 250 K/uL (130-400); RED BLOOD CELL COUNT(AUTO) 3.55 MIL/uL (4.00-5.50); RED CELL DISTRIBUTION WIDTH 16.4 % (11.0-15.5); WHITE BLOOD COUNT (AUTO) 9.3 K/uL (4.8-10.8)
[2019-02-02 05:16] LABS: ALBUMIN 2.4 g/dL (3.5-5.0); BILIRUBIN,TOTAL 0.4 mg/dL (0.2-1.0); CREATININE 1.2 mg/dL (0.5-1.5); POTASSIUM 3.9 mmol/L (3.5-5.1); TOTAL PROTEIN, SERUM 7.2 g/dL (6.0-8.3)
[2019-02-02 07:00] VITALS: BP 117/77
[2019-02-02] MEDS: MEGESTROL 400 MG/10 ML UDCUP PO SCH (08:49)
[2019-02-02] MEDS: FAMOTIDINE 20MG TAB 20 MG TAB PO SCH (08:50)
[2019-02-02] MEDS: ENOXAPARIN SODIUM 40 MG/0.4 ML SYRINGE SQ SCH (08:51)
[2019-02-02] MEDS ORDERED: LEVO500T2 PO (12:19)
[2019-02-02] MEDS ORDERED: TYL3 PO (12:19)
== END 2019-02-02 14:20 | disposition home or self-care (01) | DRG 659 ==
LOC: EDH 01:14 → EDHIP 07:35 → 3AH 19:48
PROVIDERS: ADMIT Hospitalist; ATTEND Hospitalist
PROC: 0T778DZ Dilation of Left Ureter with Intraluminal Device, Via Natural or Artificial Opening Endoscopic (ICD-10-PCS; principal; 2019-02-01 07:00)
PROC: 0TP98DZ Removal of Intraluminal Device from Ureter, Via Natural or Artificial Opening Endoscopic (ICD-10-PCS; 2019-02-01 07:00)
DX: N13.6 Pyonephrosis (principal); E43 Unspecified severe protein-calorie malnutrition; C78.7 Secondary malignant neoplasm of liver and intrahepatic bile duct; R91.8 Other nonspecific abnormal finding of lung field; N28.1 Cyst of kidney, acquired; I10 Essential (primary) hypertension; E78.5 Hyperlipidemia, unspecified; C54.1 Malignant neoplasm of endometrium; E66.9 Obesity, unspecified; Z68.27 Body mass index [BMI] 27.0-27.9, adult; Z90.710 Acquired absence of both cervix and uterus; Z83.3 Family history of diabetes mellitus; Z82.0 Family history of epilepsy and other diseases of the nervous system; Z82.49 Family history of ischemic heart disease and other diseases of the circulatory system; Z80.41 Family history of malignant neoplasm of ovary; Z80.0 Family history of malignant neoplasm of digestive organs
CPT/HCPCS: 36415; 74176; 74400; 74420; 76705; 80048; 80053; 81001; 85025; 85027; 87071; 87088; 87205; C1758; C1769; C2617; G0378; J1100; J1650; J1956; J2001; J2175; J2250; J2405; J2704; J3010; J7030; J7120; Q9967

== ENCOUNTER → 2019-02-07 | Outpatient (CLI) | payer MEDICARE ==
[~2019-02-07] MED LIST changes: +CYAN250010 PO; +LEVO500T2 PO; +MEGE400O20 PO; +NITR0.3T11 SL; -ONDA4TAB9 PO; -TRAM50TA4 PO; +TRAV5DRO OU; +TYL3 PO
== END | disposition home or self-care (01) ==
LOC: RAH 12:03
PROVIDERS: ATTEND Urology
DX: I82.493 Acute embolism and thrombosis of other specified deep vein of lower extremity, bilateral (principal); R22.43 Localized swelling, mass and lump, lower limb, bilateral
CPT/HCPCS: 93970

== ENCOUNTER 2019-03-22 10:42 | Day surgery (SDC) | payer MEDICARE ==
[~2019-03-22 10:42] MED LIST changes: +CEPH-578 PO; -CYAN250010 PO; -LEVO500T2 PO; -TYL3 PO
[2019-03-22] MEDS ORDERED: IODIXANOL 320 MG/ML 100 ML VIAL ONE (11:34)
[2019-03-22] MEDS ORDERED: LIDOCAINE HCL 2% 20ML ONE (11:34)
[2019-03-22] MEDS ORDERED: SODIUM BICARB 50MEQ 50ML VIAL ONE (11:34)
[2019-03-22 11:47] LABS: BASOPHILS % (AUTO) 0.3 % (0.0-5.0); EOSINOPHILS % (AUTO) 2.3 % (0.0-8.0); LYMPHOCYTES % (AUTO) 21.8 % (21.0-51.0); MEAN CORPUSCULAR HEMOGLOBIN 26.5 pg (27.0-33.0); MEAN CORPUSCULAR HGB CONC 32.3 g/dL (32.0-36.0); MEAN CORPUSCULAR VOLUME 82.1 fL (79-99); MONOCYTES % (AUTO) 8.5 % (3.0-13.0); NEUTROPHILS % (AUTO) 67.1 % (40.0-77.0); PLATELET COUNT (AUTO) 304 K/uL (130-400); RED BLOOD CELL COUNT(AUTO) 4.15 MIL/uL (4.00-5.50)
[2019-03-22 11:50] VITALS: BP 102/64
[2019-03-22 12:02] LABS: INR 1.09 (0.85-1.15); PROTHROMBIN TIME 11.4 SEC (9.6-11.6)
[2019-03-22 12:11] LABS: CREATININE 1.1 mg/dL (0.5-1.5); POTASSIUM 3.9 mmol/L (3.5-5.1)
--- NOTE | 2019-03-22 12:25 | NUR ---
WHEN PTS MARS RECEIVED FROM [facility], PT WAS GIVEN ELEQUIS LAST TIME. DR. MAHAJAN TO BE NOTIFIED AND PENDING OK FROM HIM
--- NOTE | 2019-03-22 12:26 | NUR ---
REPORTED ABNORMAL CA TO LICO ACKERMAN INTERLOCKING TOWER OPERATOR OF DR. Pancho HOLLIS, PER LICO CHANEY SHE WILL ADDRESS ELEVATED CA LEVAT AT THE [facility]. SHE WAS REPORTED THAT PT WAS GIVEN ELEQUIS UNTIL LAST NIGHT AND THAT DR. MAHAJAN WAS PENDING TO DECIDE IF OK TO DO.
--- NOTE | 2019-03-22 12:52 | NUR ---
DR. MAHAJAN DECIDED TO RESCHEDULE PROCEDURE FOR THIS COMING MONDAY. HE SPOKE TO PATIENT AND FAMILY AND EXPLAINED THAT FOR PTS SAFETY AND RISK OF BLEEDING HE WOULD RATHER DO IT ON MONDAY.BOTH PATIENT AND FAMILY AGREED. ORDERS RECEIVED AND CARRIED OUT. ASSISTED CALLED WITH ORDERS FOR PATIENT TO TAKE ELEQUIS TODAY AND BUT NOT ON MONDAY OR MONDAY AND COME IN ON Monday03/25/2019 FOR PROCEDURE. CALLED REPORT TO FRANC ROCKWELL LVN AT [facility].
[2019-03-22 13:55] VITALS: BP 104/62
--- NOTE | 2019-03-22 13:55 | NUR ---
PATIENT DISCHARGE VIA WHEELCHAIR IN [facility] WITH FAMILY AT HER SIDE. PATIENT IN NO DISTRESS.
== END 2019-03-22 13:55 | disposition short-term general hospital (02) ==
LOC: DAH 10:42
PROVIDERS: ATTEND Family Medicine
DX: Z45.2 Encounter for adjustment and management of vascular access device (principal); Z53.9 Procedure and treatment not carried out, unspecified reason
CPT/HCPCS: 36415; 80048; 85025; 85610; 85730; J1644; J3490; Q9967

== ENCOUNTER 2019-03-25 06:00 | Day surgery (SDC) | payer MEDICARE ==
[2019-03-25 06:30] VITALS: BP 137/66
[2019-03-25] MEDS ORDERED: SODIUM CHLORIDE 0.9% 1000ML 1,000 ML IV ONE (07:29)
[2019-03-25] MEDS ORDERED: IOHEXOL-350 50ML VIAL IV ONE (10:11)
[2019-03-25] MEDS ORDERED: LIDOCAINE HCL 1% MDV 50ML VIAL ONE (10:12)
[2019-03-25 11:10] VITALS: BP 108/67
[2019-03-25 11:25] VITALS: BP 102/58
[2019-03-25 11:40] VITALS: BP 102/62
[2019-03-25 11:55] VITALS: BP 108/74
--- NOTE | 2019-03-25 12:00 | NUR ---
REPORT CALLED TO RAUDEL EBLL AT [facility].
== END 2019-03-25 12:15 ==
LOC: DAH 06:00
PROVIDERS: ATTEND Family Medicine
DX: I82.499 Acute embolism and thrombosis of other specified deep vein of unspecified lower extremity (principal); Z79.899 Other long term (current) drug therapy; Z79.01 Long term (current) use of anticoagulants; I10 Essential (primary) hypertension; E11.9 Type 2 diabetes mellitus without complications; Z98.890 Other specified postprocedural states; E66.9 Obesity, unspecified; Z85.41 Personal history of malignant neoplasm of cervix uteri
CPT/HCPCS: 37191; 82948; A4606; C1769; C1880; C1894; J1644; J3490; J7030; Q9967

== ENCOUNTER 2019-04-16 09:28 | Day surgery (SDC) | payer MEDICARE ==
[2019-04-12 16:28] LABS: HEMATOCRIT 31.1 % (36-48); MEAN CORPUSCULAR HEMOGLOBIN 26.6 pg (27.0-33.0); MEAN CORPUSCULAR HGB CONC 31.9 g/dL (32.0-36.0); MEAN CORPUSCULAR VOLUME 83.4 fL (79-99); NUCLEATED RED BLOOD CELLS 0.2 % (0.0-0.19); PLATELET COUNT (AUTO) 343 K/uL (130-400); RED BLOOD CELL COUNT(AUTO) 3.73 MIL/uL (4.00-5.50); RED CELL DISTRIBUTION WIDTH 20.5 % (11.0-15.5); WHITE BLOOD COUNT (AUTO) 7.8 K/uL (4.8-10.8)
[2019-04-12 16:42] LABS: CREATININE 1.1 mg/dL (0.5-1.5); POTASSIUM 3.7 mmol/L (3.5-5.1)
[2019-04-12 16:43] LABS: INR 1.07 (0.85-1.15); PARTIAL THROMBOPLASTIN TIME 27.8 SEC (26.3-35.5); PROTHROMBIN TIME 11.2 SEC (9.6-11.6)
[2019-04-12 17:35] VITALS: BP 149/105
--- NOTE | 2019-04-12 17:51 | NUR ---
UA PT CANNOT STAND. SPOKE TO DR MASHA PANIAGUA ASST. PER MASHA, [facility] TO CATH PT AND COLLECT UA FOR UA/ C&S AND WILL SEND US REPORT. INSTRUCTIONS GIVEN TO RAUDEL PEREZ IN CHARGE OF PT. ORDERS GIVEN TO [facility] IN REGARDS TO CATH PT FOR UA, MEDICATIONS FOR PT TO TAKE ON AM OF PROCEDURE AND TIME OF ARRIVAL. RAUDEL PEREZ VERBALIZED UNDERSTANDING. FAX NUMBER [phone] GIVEN TO HER TO SEND UA RESULTS.
--- NOTE | 2019-04-12 18:07 | NUR ---
NURSING: REQUESTED COPY OF MEDICATIONS FROM [facility] TO BE FAXED SPOKE TO CHRIS. DAUGHTER GIVEN COPY OF PRE-OP INSTRUCTIONS , COPY ALSO FAXED TO [facility]IS [employer]TENA[employer]PER[employer] AT [facility], 1928–1983. DAUGHTER GIVEN ENEMA TO GIVE TO NURSE AT LONG-TERM ALONG WITH INSTRUCTIONS.
--- NOTE | 2019-04-12 18:10 | NUR ---
[facility]NORM[facility] LABS CALLED DR. FLANAGAN'S OFFICE TO REPORT HGB 9.9, HCT 31.1, SPOKE TO ARCELIA, STATED TO FAX LABS. FAXED CBC RESULT TO OFFICE FOR DR. FLANAGAN TO REVIEW.
--- NOTE | 2019-04-12 18:43 | NUR ---
NURSING: NOTIFIED DR. DAMICO OF PT ABNORMAL EKG, PT IS SINUS TACHY/ STABLE, NO NEW ORDERS GIVEN, OK TO PROCEED.
[2019-04-16] VITALS (19 sets, daily range): BP systolic 127–154; BP diastolic 70–91
[~2019-04-16] VITALS: Ht 160 cm; Wt 64.0 kg
[~2019-04-16 09:28] MED LIST changes: +CEFAZOLIN SODIUM 1 GM VIAL IVP ONE; -CEPH-578 PO; +FAMO20TA8 PO; +FURO20TA4 PO; +LACTATED RINGERS 1000ML 1,000 ML IV SCH; -MEGE400O20 PO; +MELA5CAP PO; -NITR0.3T11 SL; +PIPE3.379 IV
[2019-04-16] MEDS ORDERED: CEFAZOLIN SODIUM 1 GM VIAL ONE (10:58)
[2019-04-16] MEDS ORDERED: IOHEXOL-350 50ML VIAL IV ONE (11:30)
--- NOTE | 2019-04-16 11:36 | NUR ---
PUPILS UNEQUAL PUPILS WITH WHITE ,pt states has cataracts Addendum: 04/16/19 at 1144 by DIOGO PHELAN RN RN Amended: Links added.
[2019-04-16] MEDS ORDERED: LIDOCAINE PF 2% 5ML ABBOJECT ONE (12:34)
[2019-04-16] MEDS ORDERED: DEXAMETHASONE SOD PHOSPHATE 10MG/ML 1ML VIAL ONE (12:34)
[2019-04-16] MEDS ORDERED: PROPOFOL 10 MG/ML 20ML VIAL IV ONE (12:35)
[2019-04-16] MEDS ORDERED: MIDAZOLAM HCL 1 MG/ML 2ML VIAL ONE (12:35)
[2019-04-16] MEDS ORDERED: FENTANYL CITRATE PF 50 MCG/1 ML 2ML VIAL ONE (12:35)
[2019-04-16] MEDS ORDERED: ONDANSETRON HCL 4 MG/2 ML VIAL ONE (12:35)
--- NOTE | 2019-04-16 14:25 | NUR ---
RECEIVE PT RECEIVED ON STRETCHER AWAKE ALERT ORIENTED X3, DAUGHTER AT BEDSIDE, 14 FR HAN[address] CATHETER IN PLACE DRAINING CLEAR LIGHT PINK URINE, NO CLOTS NOTED. PT STABLE. NO COMPLAINTS MADE. LEFT SIDED WEAKNESS NOTED. CALL TORRES WITHIN REACH.
--- NOTE | 2019-04-16 14:40 | NUR ---
HANSON CATH HANSON CATHETER REMOVED WITHOUT ANY COMPLICATIONS, PT TOLERATED WELL.
--- NOTE | 2019-04-16 15:50 | NUR ---
REPORT REPORT GIVEN TO NURSE SHUBHAM FROM [facility]. PT IS READY FOR DISCHARGE, WAITING ON [facility]. DAUGHTER WITH PT. DISCHARGE INSTRUCTIONS AND PRESCRIPTION GIVEN TO DAUGHTER TO GIVE TO [facility] NURSE. Addendum: 04/16/19 at 1941 by LUIZ MERINO RN RN ADDENDUM: TOLD [facility] NURSE DR. FLANAGAN DID NOT RECONCILE MEDS, CALLED OFFICE EARLIER, UNABLE TO REACH DR. FLANAGAN. WILL CALL AGAIN.
--- NOTE | 2019-04-16 16:00 | NUR ---
MED REC CALLED DR. FLANAGAN'S OFFICE REGARDING MEDICATION RECONCILIATION. SPOKE TO TORREY. DR. FLANAGAN NOT IN OFFICE, UNABLE TO REACH. CALLED [facility], SPOKE TO SHUBHAM QUESADA WILL CALL ME BACK. CALL BACK FROM [facility] NURSE RAUDEL MORRIS. TOLD ARTURO WE ARE UNABLE TO REACH DR. FLANAGAN, CALL ATTENDING MD WITH REGARDS TO RESUMING [facility] MED[facility]. RAUDEL MORRIS STATED THEY WILL CALL ATTENDING PCP WITH RE TO MED REC.
--- NOTE | 2019-04-16 16:20 | NUR ---
DISCHARGE [facility] HERE. PT DISCHARGED VIA WHEELCHAIR WITH DAUGHTER. DISCHARGE INSTRUCTIONS ALSO GIVEN TO DAUGHTER. VERBALIZED UNDERSTANDING. PT STABLE. NO COMPLAINTS MADE.
== END 2019-04-16 16:20 | disposition home or self-care (01) ==
LOC: DAH 09:28
PROVIDERS: ATTEND Urology
DX: N13.30 Unspecified hydronephrosis (principal); C54.1 Malignant neoplasm of endometrium; I10 Essential (primary) hypertension; E78.5 Hyperlipidemia, unspecified; Z79.899 Other long term (current) drug therapy; Z79.01 Long term (current) use of anticoagulants; Z86.718 Personal history of other venous thrombosis and embolism; Z90.710 Acquired absence of both cervix and uterus; Z98.890 Other specified postprocedural states; Z83.3 Family history of diabetes mellitus; Z82.49 Family history of ischemic heart disease and other diseases of the circulatory system
CPT/HCPCS: 36415 ×2; 52332; 71045; 74420; 80048; 85027; 85610; 85730; 87071; 87205; 88300; 93005; A4344; A4354; A4358; A4600; C1769 ×2; C2617; J0690; J1100; J2001; J2250; J2405; J2704; J3010; J7030; J7120; Q9967; 36591; 71046

== ENCOUNTER 2019-07-09 07:01 | Day surgery (SDC) | payer MEDICARE ==
[2019-07-08 15:00] VITALS: BP 141/86
[2019-07-08 15:22] LABS: HEMATOCRIT 25.6 % (36-48); MEAN CORPUSCULAR HEMOGLOBIN 31.5 pg (27.0-33.0); MEAN CORPUSCULAR HGB CONC 32.6 g/dL (32.0-36.0); MEAN CORPUSCULAR VOLUME 96.8 fL (79-99); NUCLEATED RED BLOOD CELLS 0.5 % (0.0-0.19); PLATELET COUNT (AUTO) 138 K/uL (130-400); RED BLOOD CELL COUNT(AUTO) 2.64 MIL/uL (4.00-5.50); RED CELL DISTRIBUTION WIDTH 17.1 % (11.0-15.5); WHITE BLOOD COUNT (AUTO) 2.7 K/uL (4.8-10.8)
[2019-07-08 15:27] LABS: CREATININE 0.9 mg/dL (0.5-1.5); POTASSIUM 3.2 mmol/L (3.5-5.1)
[2019-07-08 15:35] LABS: INR 1.02 (0.85-1.15); PARTIAL THROMBOPLASTIN TIME 26.5 SEC (26.3-35.5); PROTHROMBIN TIME 10.7 SEC (9.6-11.6)
[2019-07-08 15:48] LABS: EOSINOPHILS % (MANUAL) 1 % (1-6); LYMPHOCYTES % (MANUAL) 64 % (22-44); MONOCYTES % (MANUAL) 23 % (2-9); SEGMENTED NEUTROPHILS % 12 % (40-70)
[2019-07-08 15:49] LABS: MAN.DIFF COMMENT-IMPRESSION MANUAL DIFFERENTIAL
[2019-07-08 15:50] LABS: PLATELET MORPHOLOGY COMMENT ADEQUATE
--- NOTE | 2019-07-08 16:40 | NUR ---
EKG EKG SINUS TACH REPORTED TO DR. MANJARREZ. ALSO REPORTED TO DR. MANJARREZ THAT PT HAS BEEN CLEARED BY HOSPITALIST IN THE PAST FOR SAME SX IN MARCH 2019. PT HAS PREVIOUS EKGS SHOWING SINUS TACH. PT AND DAUGHTER/POA STATES PT HAS TACHYCARDIA AND WAS ADMITTED IN THE PAST. Addendum: 07/08/19 at 1643 by LUIZ MERINO RN RN OKAY TO PROCEED WITH PLANNED PROCEDURE PER DR. MANJARREZ.
--- NOTE | 2019-07-08 17:00 | NUR ---
ABNORMAL LABS CALLED DR. FLANAGAN'S OFFICE TO REPORT ABNORMAL LABS. PER ARCELIA, FAX LABS TO OFFICE AND WILL CALL BACK. ABNORMAL LABS FAXED. WAITING FOR CALL BACK. Addendum: 07/08/19 at 1828 by LUIZ MERINO RN RN FAXED BMP AND CBC RESULTS
--- NOTE | 2019-07-08 17:15 | NUR ---
URINE PT UNABLE TO GIVEN URINE SAMPLE, PT INCONTINENT. NOTIFIED ARCELIA OF DR. FLANAGAN'S OFFICE, STATED HE WILL NOTIFY DR. FLANAGAN AND SEE IF HE WANTS TO ORDER I/O CATH TO GET URINE SAMPLE. WAITED FOR RESPONSE. PT LATER ON STATES SHE WANTED TO LEAVE ALREADY, DID NOT WANT TO WAIT FOR RESPONSE. ARCELIA OF DR. FLANAGAN'S OFFICE NOTIFIED THAT PT LEFT. SHE WILL LEFT DR. FLANAGAN KNOW. Addendum: 07/08/19 at 1830 by LUIZ MERINO RN RN H&P: PER ARCELIA, DR. FLANAGAN WILL DICTATE H&P LATER TODAY.
--- NOTE | 2019-07-08 18:50 | NUR ---
ORDER FAXED LABS REVIEWED BY DR. FLANAGAN. PER DR. FLANAGAN, CANCEL PRE OP MED ANCEF IV. GIVE ZOSYN 3.375 GRAMS IV AUDIOLOGY ASSISTANT TO OR. DR. FLANAGAN AWARE THAT WE COULD NOT OBTAIN URINE SAMPLE ON PRE OP. NO FURTHER ORDERS GIVEN.
[~2019-07-09] VITALS: Ht 160 cm; Wt 51.3 kg
[2019-07-09] VITALS (14 sets, daily range): BP systolic 97–123; BP diastolic 38–78
[~2019-07-09 07:01] MED LIST changes: -AEC81 PO; +ASPI-1181 PO; -CEFAZOLIN SODIUM 1 GM VIAL IVP ONE; -FAMO20TA8 PO; +FAMOTIDINE PO; -FURO20TA4 PO; +KETAMINE HCL 50MG/ML 10ML VIAL IJ ONE; -LACTATED RINGERS 1000ML 1,000 ML IV SCH; +LACTULOSE PO; +MACROBID PO; -MELA5CAP PO; -OLME20TA22 PO; -PIPE3.379 IV; +SENNA PO; -SIMV20TA6 PO; +SIMVASTATIN PO; +ZOFRAN PO
[2019-07-09] MEDS ORDERED: CEFAZOLIN SODIUM 1 GM VIAL IVP ONE (08:00)
[2019-07-09] MEDS ORDERED: IOHEXOL-350 50ML VIAL IV ONE (08:09)
[2019-07-09] MEDS: LACTATED RINGERS 1000ML 1,000 ML IV SCH ×2 (08:23→14:00)
[2019-07-09] MEDS: ZOSYN 3.375GM+NS 50ML 50 ML IV PRN ×2 (08:26→14:00)
[2019-07-09] MEDS ORDERED: SUCCINYLCHOLINE 200MG/10ML SYR ONE (08:58)
[2019-07-09] MEDS ORDERED: LIDOCAINE PF 2% 5ML ABBOJECT ONE (08:58)
[2019-07-09] MEDS ORDERED: PROPOFOL 10 MG/ML 20ML VIAL IV ONE ×2 (08:58→14:08)
[2019-07-09] MEDS ORDERED: ONDANSETRON HCL 4 MG/2 ML VIAL ONE (08:58)
[2019-07-09 10:02] LABS: APPEARANCE,URINE Cloudy (CLEAR); BILIRUBIN,URINE Negative (NEGATIVE); COLOR,URINE Yellow (YELLOW); GLUCOSE, URINE (UA) Negative (NEGATIVE); KETONES,URINE Negative (NEGATIVE); LEUKOCYTE ESTERASE ,URINE Large (NEGATIVE); NITRATE,URINE Negative (NEGATIVE); OCCULT BLOOD,URINE Small (NEGATIVE); PROTEIN,URINE POS 2+ mg/dL (NEGATIVE)
[2019-07-09 10:12] LABS: BACTERIA,URINE Many /HPF (None Seen); RBC,URINE 0-1 /HPF (0-1); SQUAMOUS EPITHELIAL CELL,UR Rare /HPF (0-2); WBC,URINE >100 /HPF (0-1)
[2019-07-09] MEDS ORDERED: LIDOCAINE HCL MPF 1% 5ML VIAL ONE (14:07)
[2019-07-09] MEDS ORDERED: FENTANYL CITRATE PF 50 MCG/1 ML 2ML VIAL ONE (14:13)
[2019-07-09] MEDS ORDERED: PHENYLEPHRINE HCL 10 MG/ML 1ML VIAL IV ONE (14:16)
[2019-07-09] MEDS ORDERED: SODIUM CHLORIDE 0.9% 10 ML VIAL ONE (14:16)
--- NOTE | 2019-07-09 15:45 | NUR ---
ASSESSMENT RECEIVED PT FROM PACU STAFF. PT AAOX3. PT DENIES ANY PAIN. DAUGHTER AT BEDSIDE.
--- NOTE | 2019-07-09 16:40 | NUR ---
DISCHARGE ORAL AND WRITTEN DISCHARGE INSTRUCTIONS GIVEN TO PT AND PTS DAUGHTER ALONG WITH PRESCRIPTION. NO OTHER QUESTIONS AT THIS TIME.
== END 2019-07-09 16:45 | disposition home or self-care (01) ==
LOC: DAH 07:01
PROVIDERS: ATTEND Urology
DX: N13.39 Other hydronephrosis (principal); I10 Essential (primary) hypertension; E78.5 Hyperlipidemia, unspecified; Z90.710 Acquired absence of both cervix and uterus; Z79.899 Other long term (current) drug therapy; Z98.890 Other specified postprocedural states; Z79.01 Long term (current) use of anticoagulants; Z82.49 Family history of ischemic heart disease and other diseases of the circulatory system; Z83.3 Family history of diabetes mellitus
CPT/HCPCS: 36415; 52332; 71046; 74420; 80048; 81001; 85027; 85610; 85730; 87077; 87088; 87186; 93005; A4354; A4358; A4600; A5113; C1758; C2617; J0330; J2001; J2370; J2405; J2543; J2704 ×2; J3010; J3490; J7030; J7120; Q9967

== ENCOUNTER 2019-10-01 13:15 | Day surgery (SDC) | payer MEDICARE ==
[2019-09-30 13:36] VITALS: BP 106/61
[2019-09-30 13:38] LABS: HEMATOCRIT 36.8 % (36-48); MEAN CORPUSCULAR HEMOGLOBIN 32.2 pg (27.0-33.0); MEAN CORPUSCULAR HGB CONC 33.7 g/dL (32.0-36.0); MEAN CORPUSCULAR VOLUME 95.6 fL (79-99); NUCLEATED RED BLOOD CELLS 0.1 % (0.0-0.19); PLATELET COUNT (AUTO) 210 K/uL (130-400); RED BLOOD CELL COUNT(AUTO) 3.85 MIL/uL (4.00-5.50); RED CELL DISTRIBUTION WIDTH 20.7 % (11.0-15.5); WHITE BLOOD COUNT (AUTO) 8.9 K/uL (4.8-10.8)
[2019-09-30 13:50] LABS: CREATININE 1.4 mg/dL (0.5-1.5); POTASSIUM 3.2 mmol/L (3.5-5.1)
[2019-09-30 13:55] LABS: PARTIAL THROMBOPLASTIN TIME 26.9 SEC (26.3-35.5); PROTHROMBIN TIME 10.5 SEC (9.6-11.6)
[2019-10-01] VITALS (15 sets, daily range): BP systolic 87–128; BP diastolic 28–98
[~2019-10-01] VITALS: Ht 157.5 cm; Wt 48.5 kg
[~2019-10-01 13:15] MED LIST changes: +CEFTRIAXONE SODIUM 1 GM IVP SCH; -KETAMINE HCL 50MG/ML 10ML VIAL IJ ONE; +LACTATED RINGERS 1000ML 1,000 ML IV SCH; -MACROBID PO; +OLME5TAB6 PO; +SIMV-43 PO; -SIMVASTATIN PO
[2019-10-01] MEDS ORDERED: LIDOCAINE PF 2% 5ML ABBOJECT ONE (14:48)
[2019-10-01] MEDS ORDERED: SUCCINYLCHOLINE 200MG/10ML SYR ONE (14:48)
[2019-10-01] MEDS ORDERED: DEXAMETHASONE SOD PHOSPHATE 10MG/ML 1ML VIAL ONE (14:48)
[2019-10-01] MEDS ORDERED: MIDAZOLAM HCL 1 MG/ML 2ML VIAL ONE (14:49)
[2019-10-01] MEDS ORDERED: ONDANSETRON HCL 4 MG/2 ML VIAL ONE (14:49)
[2019-10-01] MEDS ORDERED: GLYCOPYRROLATE 1 MG/5 ML SYRINGE ONE (14:49)
[2019-10-01] MEDS ORDERED: FENTANYL CITRATE PF 50 MCG/1 ML 2ML VIAL ONE (14:50)
[2019-10-01] MEDS ORDERED: NEOSTIGMINE 5MG/5ML SYR IV ONE (14:50)
[2019-10-01] MEDS ORDERED: ROCURONIUM 10MG/1ML SYR 10 MG/ML ML ONE (14:50)
[2019-10-01] MEDS ORDERED: PROPOFOL 10 MG/ML 20ML VIAL IV ONE (14:50)
[2019-10-01] MEDS ORDERED: CEFTRIAXONE SODIUM 1 GM ONE (15:38)
[2019-10-01] MEDS ORDERED: MEROPENEM 1 GM VIAL IVP SCH (16:00)
[2019-10-01] MEDS ORDERED: IOHEXOL-350 50ML VIAL IV ONE (16:13)
[2019-10-01 17:01] LABS: APPEARANCE,URINE CLOUDY (CLEAR); BILIRUBIN,URINE SMALL (NEGATIVE); COLOR,URINE OTHER (YELLOW); GLUCOSE, URINE (UA) NEGATIVE (NEGATIVE); KETONES,URINE NEGATIVE (NEGATIVE); LEUKOCYTE ESTERASE ,URINE MODERATE (NEGATIVE); NITRATE,URINE POSITIVE (NEGATIVE); OCCULT BLOOD,URINE LARGE (NEGATIVE); PROTEIN,URINE 100 mg/dL (NEGATIVE)
[2019-10-01 17:34] LABS: BACTERIA,URINE Many /HPF (None Seen); WBC,URINE 51-100 /HPF (0-1)
[2019-10-01 17:35] LABS: MUCUS,URINE None Seen LPF (None Seen); SQUAMOUS EPITHELIAL CELL,UR None Seen /HPF (0-2)
--- NOTE | 2019-10-01 17:53 | NUR ---
ASSESSMENT RECEIVED PT FROM PACU STAFF SPENCER QUESADA. PT AAOX3. DENIES ANY PAIN. DAUGHTER AT BEDSIDE.
--- NOTE | 2019-10-01 18:39 | NUR ---
DISCHARGE ORAL AND WRITTEN DISCHARGE INSTRUCTIONS GIVEN TO PT AND PTS DAUGHTER ALONG WITH PRESCRIPTION. DENIES ANY PAIN AT THIS TIME. VOIDED X1 INCONTINENT. NO OTHER QUESTIONS AT THIS TIME.
== END 2019-10-01 18:45 | disposition home or self-care (01) ==
LOC: DAH 13:15
PROVIDERS: ATTEND Urology
DX: N13.30 Unspecified hydronephrosis (principal); N28.89 Other specified disorders of kidney and ureter; C54.1 Malignant neoplasm of endometrium; Z90.710 Acquired absence of both cervix and uterus; Z79.82 Long term (current) use of aspirin; Z79.01 Long term (current) use of anticoagulants; Z79.899 Other long term (current) drug therapy
CPT/HCPCS: 36415; 52332; 71046; 74018; 74420; 80048; 81001; 85027; 85610; 85730; 87071; 87077 ×2; 87186 ×2; 87205; 93005; A4215; A4221; A4222; A4223; A4358; A4663; A6260; C1769; C2617; J0330; J1100; J2001; J2185; J2250; J2405; J2704; J2710; J3010; J3490; J7030; Q9967; J0696